=== PATIENT | male | born 1980 | race African-American/Black ===

== ENCOUNTER 2016-08-09 17:36 | Emergency (ER) | payer BC, MEDICAID ==
[~2016-08-09] VITALS: Ht 185.4 cm; Wt 85.0 kg
[2016-08-09 17:39] VITALS: Ht 185.4 cm; Wt 85.0 kg
[2016-08-09 18:26] LABS: URINE BLOOD (Dip) POC Trace-intact (NEGATIVE)
--- NOTE | 2016-08-09 18:36 | ERD ---
ER Documentation Chief Complaint Date/Time DATE: 08/09/16 TIME: 18:33 Chief Complaint WANTS TO CHECK FOR STD HPI This is a 36-year-old male who presents to the emergency room because he was on a plasma [facility] and they told him he had a fever. The patient states that he wanted to be checked for STDs because he had a fever. The patient is denying any painful urination, rashes, penile discharge, or any symptoms consistent with a sexually transmitted disease. ROS All systems reviewed and are negative except as per history of present illness. Physical Exam Vitals Vital Signs Date Time Temp Pulse Resp B/P Pulse Ox O2 Delivery O2 Flow Rate FiO2 08/09/16 17:39 100.0 90 18 130/76 97 Physical Exam Const: No acute distress Head: Atraumatic Eyes: Normal Conjunctiva ENT: Normal External Ears, Nose and Mouth. Neck: Full range of motion..~ No meningismus. Resp: Clear to auscultation bilaterally Cardio: Regular rate and rhythm, no murmurs Abd: Soft, non tender, non distended. Normal bowel sounds Skin: No petechiae or rashes Back: No midline or flank tenderness Ext: No cyanosis, or edema Neur: Awake and alert Psych: Normal Mood and Affect Results 24 hrs Laboratory Tests Test 08/09/16 18:27 Bedside Urine pH (LAB) 6.0 Bedside Urine Protein (LAB) Negative Bedside Urine Glucose (UA) Negative Bedside Urine Ketones (LAB) Negative Bedside Urine Blood Trace-intact Bedside Urine Nitrite (LAB) Negative Bedside Urine Leukocyte Esterase (L Negative Procedures/MDM This 36-year-old male presents to the ER because he had a fever and thought that this indicated that he had a sexually transmitted disease. The patient does state that he has had sexual intercourse in the past that was unprotected. The patient is denying any symptoms of a fever, rash, penile discharge, or irritation. The patient had a urine dip which was normal. I offered the patient treatment for GC chlamydia and trichomonas if he is having any symptoms and the patient denies having any symptoms. I advised him that there are many reasons why he could have a fever and the patient does state that he has had a cough and nasal congestion recently. My suspicion is that the patient likely has a viral URI at this time. The patient will be discharged home. Departure Diagnosis: Primary Impression: Encounter for laboratory test Condition: Stable BIBIANA ROCK DO August 09, 2016 18:36
[2016-08-09 18:46] VITALS: TEMP 98.7
== END 2016-08-09 18:45 | disposition home or self-care (01) ==
LOC: E/R 17:36
DX: Z00.00 Encounter for general adult medical examination without abnormal findings (principal)
CPT/HCPCS: 81003; 99282